=== PATIENT | female | born 1960 | race Caucasian/White ===

== ENCOUNTER 2018-04-26 12:15 | Outpatient (CLI) | payer OTHER | END 2018-04-26 12:16 | disposition home or self-care (01) | LOC: BICMAMMO 12:15 | PROVIDERS: ATTEND Family Medicine | DX: Z12.31 Encounter for screening mammogram for malignant neoplasm of breast (principal) | CPT/HCPCS: 77063; 77067 ==

== ENCOUNTER 2018-09-12 15:34 | Outpatient (CLI) | payer OTHER ==
--- NOTE | 2018-09-12 16:27 | RAD ---
LUMBAR SPINE TWO VIEWS: 09/12/18 HISTORY: Sacroiliitis, arthritis, pain for years. COMPARISON: 10/08/15. FINDINGS: AP and lateral views of the lumbar spine demonstrate disc osteophytosis and disc space narrowing invo lving the lower lumbar spine as well as extensive facet arthrosis. No evidence for acute fracture or dislocation or focal bone lesion. IMPRESSION: Lumbar spondylosis. Little change from prior study on this AP and lateral view only exam. POS: [facility]
== END 2018-09-12 15:35 | disposition home or self-care (01) ==
LOC: BICRAD 15:34
PROVIDERS: ATTEND Specialist
DX: M46.1 Sacroiliitis, not elsewhere classified (principal); M47.816 Spondylosis without myelopathy or radiculopathy, lumbar region
CPT/HCPCS: 72100

== ENCOUNTER 2019-11-07 10:01 | Emergency (ER) | payer OTHER | END 2019-11-07 11:17 | disposition home or self-care (01) | LOC: ERS 10:01 | DX: J06.9 Acute upper respiratory infection, unspecified (principal); F17.210 Nicotine dependence, cigarettes, uncomplicated; Z79.899 Other long term (current) drug therapy | CPT/HCPCS: 87804; 99284; U0001 ==

== ENCOUNTER 2019-11-25 10:23 | Outpatient (CLI) | payer OTHER ==
--- NOTE | 2019-11-25 11:17 | RAD ---
EXAM: Chest PA and lateral: HISTORY: Cough. Symptoms x6 weeks. COMPARISON: 02/27/2017 FINDINGS: Heart: Normal cardiac silhouette Aorta: Unremarkable Pulmonary vessels: Normal Costophrenic angles: Costophrenic angles are clear. Lungs: No consolidation or masses. Pneumothorax: No pneumothorax Osseous structures: No osseous abnormalities IMPRESSION: No acute cardiopulmonary process.
== END 2019-11-25 10:24 | disposition home or self-care (01) ==
LOC: BICRAD 10:23
PROVIDERS: ATTEND Specialist
DX: J44.9 Chronic obstructive pulmonary disease, unspecified (principal)
CPT/HCPCS: 71046

== ENCOUNTER 2020-02-06 09:52 | Outpatient (CLI) | payer OTHER ==
--- NOTE | 2020-02-06 10:29 | RAD ---
RADIOGRAPH LUMBAR SPINE 2 VIEWS: DATE: 02/06/2020 HISTORY: 59-year-old female with low back pain COMPARISON: 09/12/2018 COMPARISON: 02/06/2020 FINDINGS: Standing views. Transitional level at thoracolumbar junction. For the purposes of this report, the le willie with bilaterally hypoplastic ribs will be designated as T12, and the last lumbar-type vertebra will be designated as L5. There is a very mild, 6 degree right-convex curvature centered at L2-3 (measured from superior endpla te of T12 to the inferior endplate of L4). This is minimally greater than on the prior study. Vertebral body heights are maintained. Mild grade 1 anterolisthesis of L3 on L4, slightly worse than on prior study, with mild disc space na rrowing. Mild to moderate disc space narrowing at L4-5, unchanged. No significant disc space narrowing at any other level. Facet DJD at L3-4, L4-5, and L5-S1. IMPRESSION: 1) mild grade 1 spondylolisthesis at L3-4 due to facet osteoarthrosis, new or minimally worse than be fore. 2) minimal right-convex lateral curvature. 3) facet osteoarthrosis at lower levels
--- NOTE | 2020-02-06 12:13 | RAD ---
CERVICAL SPINE 3 VIEWS: HISTORY: Neck pain without injury. FINDINGS: C7 and T1 are partially obscured on the lateral view. The tip of the odontoid and portions of C1 are obscured on the AP open mouth view. Disk-osteophytosis changes are noted including C4-C5 and most m arked at C5-C6. Facet arthrosis. No prevertebral soft tissue swelling. IMPRESSION: Cervical spondylosis. POS: [facility]
== END 2020-02-06 09:53 | disposition home or self-care (01) ==
LOC: BICRAD 09:52
PROVIDERS: ATTEND Specialist
DX: M46.02 Spinal enthesopathy, cervical region (principal); M54.5 Low back pain; M47.812 Spondylosis without myelopathy or radiculopathy, cervical region; M47.816 Spondylosis without myelopathy or radiculopathy, lumbar region; M43.16 Spondylolisthesis, lumbar region; M43.8X6 Other specified deforming dorsopathies, lumbar region
CPT/HCPCS: 72040; 72100

== ENCOUNTER 2020-10-08 16:26 | Outpatient (CLI) | payer OTHER ==
--- NOTE | 2020-10-08 16:46 | RAD ---
Exam: Single view of the pelvis HISTORY: Left-sided hip pain COMPARISON: None FINDINGS: A single view the pelvis shows no evidence of acute fracture or dislocation. No degenerativ e changes seen in either hip. IMPRESSION: No evidence of acute osseous abnormality.
--- NOTE | 2020-10-08 16:46 | RAD ---
Chest 2 views HISTORY: COPD. Dyspnea. COMPARISON: 11/25/2019. FINDINGS: Cardiac silhouette and pulmonary vasculature are unremarkable. Mediastinum is midline. Post operative changes at the cervicothoracic junction of the spine. No confluent airspace consolidation, pneumothorax, or pleural fluid. IMPRESSION : No acute abnormalities are demonstrated.
--- NOTE | 2020-10-08 16:47 | RAD ---
EXAM: 3 views of the sacroiliac joints HISTORY: Left hip pain for a year COMPARISON: None FINDINGS: 3 views of the sacrum shows a symmetric appearance of the sacroiliac joints. No fusion of t he joints is seen. No surrounding erosions are present. No significant sclerosis is seen. IMPRESSION: No significant abnormality
== END 2020-10-08 16:27 | disposition home or self-care (01) ==
LOC: BICRAD 16:26
PROVIDERS: ATTEND Specialist
DX: J44.9 Chronic obstructive pulmonary disease, unspecified (principal); M46.1 Sacroiliitis, not elsewhere classified; M25.9 Joint disorder, unspecified
CPT/HCPCS: 71046; 72170; 72202

== ENCOUNTER 2022-11-11 01:34 | Inpatient (IN) | payer OTHER, SELFPAY ==
[2022-11-11 02:22] LABS: #Basophils 0.1 thou/uL (0.0-0.2); #Eosinphils 0.1 thou/uL (0.0-0.7); #Lymphocytes 1.9 thou/uL (1.20-3.40); #Monocytes 0.4 thou/uL (0.11-0.59); #Neutrophils 9.1 thou/uL (1.40-6.50); %Basophils 0.6 % (0.0-1.0); %Eosinophils 0.6 % (0.0-10.0); %Lymphocytes 16.4 % (21.0-51.0); %Neutrophils 79.4 % (42.0-75.0); Mean Corpuscular HGB CONC 35.2 g/dL (32.0-36.0); Mean Corpuscular Hemoglobin 36.6 pg (27.0-31.0); Mean Platelet Volume 7.9 fL (7.4-10.4); Platelet Count 322 10x3/uL (130-400); RBC Distribution Width 12.1 % (11.5-14.5); Red Blood Cell (RBC) Count 4.37 mill/uL (4.20-5.40); White Blood Cell (WBC) Count 11.5 10x3/uL (4.8-10.8)
[2022-11-11 02:32] LABS: ALT (SGPT) 22 U/L (8-55); AST (SGOT) 17 U/L (5-34); Albumin 4.6 g/dL (3.4-4.8); Alkaline Phosphatase 53 U/L (40-110); Anion Gap 15 mmol/L (10-20); BUN (Urea Nitrogen) 13 mg/dL (9.8-20.1); Bilirubin, Total 0.4 mg/dL (0.2-1.2); Calc. Creatinine Clearance 0 mL/min (70-130); Calcium 10.6 mg/dL (7.8-10.44); Carbon Dioxide 24 mmol/L (23-31); Chloride 103 mmol/L (98-107); Estimated GFR 76; Globulin 2.5 g/dL (2.4-3.5); Glucose 121 mg/dL (80-115); Potassium 4.2 mmol/L (3.5-5.1); Protein, Total 7.1 g/dL (5.8-8.1); Sodium 138 mmol/L (136-145)
[2022-11-11] MEDS ORDERED: Ondansetron ODT 4 MG TAB ONE (02:59)
[2022-11-11] MEDS ORDERED: Famotidine/PF 20 mg/2ml Vial ONE (03:22)
[2022-11-11] MEDS ORDERED: Morphine 4 MG/ML VIAL ONE ×2 (03:22→05:08)
[2022-11-11] MEDS ORDERED: Piperacillin/Tazobactam 4.5 GM VIAL ONE (05:08)
[2022-11-11 05:22] LABS: Bilirubin Negative (Negative); Blood, Urine Negative (Negative); Clarity Clear (Clear); Glucose, Urine (Dipstick) Normal (Negative); Ketone, Urine 20 mg/dL (Negative); Leukocyte Negative Leu/uL (Negative); Nitrite Negative (Negative); Protein, Urine (Dipstick) Negative (Neg-Trace); Specific Gravity, Urine 1.028 (1.002-1.036); Urobilinogen Normal mg/dL (Less than 2)
[2022-11-11] MEDS ORDERED: Ondansetron PF 4 MG/2 ML Vial ONE ×2 (05:46→16:50)
[2022-11-11] MEDS ORDERED: Morphine 4 MG/ML VIAL SLOW IVP PRN (05:47)
[2022-11-11] MEDS ORDERED: Ondansetron PF 4 MG/2 ML Vial IVP PRN (06:00)
[2022-11-11] MEDS ORDERED: Ondansetron ODT 4 MG TAB SL PRN (06:00)
[2022-11-11] MEDS ORDERED: Lorazepam 2 MG/ML VIAL SLOW IVP PRN (07:23)
[2022-11-11] MEDS ORDERED: Lorazepam 1 MG TAB PO PRN (07:25)
[2022-11-11] MEDS ORDERED: Ondansetron ODT 4 MG TAB PO PRN (07:25)
[2022-11-11] MEDS ORDERED: Lorazepam 2 MG/ML VIAL IM PRN (07:25)
[2022-11-11] MEDS ORDERED: Electrolyte Replacement Protocol 1 EACH FS SCH (07:30)
[2022-11-11] MEDS: Lactated Ringer's 1,000 ML IV SCH ×2 (07:54→16:22)
[2022-11-11] MEDS: Thiamine HCl 200 MG/2 ML VIAL SLOW IVP SCH (08:16)
[2022-11-11] MEDS: Famotidine/PF 20 mg/2ml Vial SLOW IVP SCH ×2 (08:16→20:25)
[2022-11-11] MEDS: Multivit, Therapeutic 1 TAB PO SCH (08:16)
[2022-11-11] MEDS: Folic Acid 1 MG TAB PO SCH (08:16)
[2022-11-11] MEDS: Lorazepam 1 MG TAB PO SCH ×3 (08:16→20:25)
[2022-11-11] MEDS: Sodium Chloride 0.9% 1,000 ML IV SCH ×2 (08:19→16:21)
[2022-11-11] MEDS: Nicotine 21 MG PATCH TD SCH (08:19)
[2022-11-11 08:35] LABS: Phosphorus 4.1 mg/dL (2.3-4.7)
[2022-11-11 09:47] VITALS: BMI 24.0
[2022-11-11] MEDS ORDERED: Piperacillin/Tazobactam 3.375 GM in Sodium Chloride 0.9% 100 ML IVPB SCH (10:00)
[2022-11-11] MEDS ORDERED: Magnesium 2 GM/50 ML(in water) 2 GM in Premix Bag 1 BAG IVPB SCH (12:30)
[2022-11-11] MEDS ORDERED: Iopamidol-370 76% 500 ML MDV (1 ML CHARGE) ONE (14:07)
[2022-11-11] MEDS ORDERED: EPINEPHrine 1 MG/ML AMP ONE (15:50)
[2022-11-11] MEDS ORDERED: Bupivacaine PF 0.5% 30 ML VIAL ONE (15:50)
[2022-11-11] MEDS ORDERED: Iopamidol 0 ML ONE (15:50)
[2022-11-11] MEDS ORDERED: Lidocaine 1% (PF) 30 ML VIAL ONE (15:50)
[2022-11-11] MEDS ORDERED: Bupivacaine HCl 0.5%/Epinephrine 1:200,000/PF 30 ml Vial ONE (15:57)
[2022-11-11] MEDS ORDERED: Sevoflurane 250 ML INH ANEST BOTTLE ONE (16:21)
[2022-11-11] MEDS ORDERED: fentaNYL PF 100 MCG/2 ML SYRINGE ONE (16:21)
[2022-11-11] MEDS ORDERED: Sodium Chloride 0.9% 100 ML ONE (16:30)
[2022-11-11] MEDS ORDERED: Piperacillin/Tazobactam 3.375 GM VIAL ONE (16:30)
[2022-11-11] MEDS ORDERED: PROPOFOL 200 MG/20 ML VIAL ONE (16:50)
[2022-11-11] MEDS ORDERED: Lidocaine 1% PF 5 ML VIAL ONE (16:50)
[2022-11-11] MEDS ORDERED: Dexamethasone 20 MG/5 ML VIAL ONE (16:50)
[2022-11-11] MEDS ORDERED: Rocuronium Bromide 10 MG/ML (10ML VIAL) ONE (16:50)
[2022-11-11] MEDS ORDERED: Succinylcholine Chloride 100 MG/5 ML SYRINGE FS ONE (16:50)
[2022-11-11] MEDS ORDERED: Ketorolac Tromethamine 30 MG/ML VIAL IVP PRN (18:24)
[2022-11-11] MEDS ORDERED: Promethazine HCl 25 MG/ML VIAL IM PRN (18:24)
[2022-11-11] MEDS ORDERED: Ondansetron HCl/PF 4 MG/2 ML Vial IVP PRN (18:24)
[2022-11-11] MEDS ORDERED: FENTANYL 50 MCG/ML 1 ML VIAL ONE (18:31)
[2022-11-11] MEDS ORDERED: Ketorolac Tromethamine 30 MG/ML VIAL ONE (18:38)
[2022-11-11] MEDS ORDERED: HYDROcodone/Acetaminophen 7.5/325 mg Tablet PO PRN (20:00)
[2022-11-12] MEDS: Sodium Chloride 0.9% 1,000 ML IV SCH ×2 (01:15→05:44)
[2022-11-12] MEDS: Lorazepam 1 MG TAB PO SCH ×2 (02:09→05:44)
[2022-11-12] MEDS: Nicotine 21 MG PATCH TD SCH (05:45)
[2022-11-12] MEDS: Thiamine HCl 200 MG/2 ML VIAL SLOW IVP SCH (05:46)
[2022-11-12] MEDS ORDERED: Levothyroxine 100 MCG SDV IVP SCH (06:00)
[2022-11-12] MEDS ORDERED: Lorazepam 1 MG TAB PO PRN (07:25)
[2022-11-12 07:48] LABS: Magnesium 2.4 mg/dL (1.6-2.6)
[2022-11-12] MEDS: Multivit, Therapeutic 1 TAB PO SCH (07:48)
[2022-11-12] MEDS: Folic Acid 1 MG TAB PO SCH (07:48)
[2022-11-12] MEDS: Famotidine/PF 20 mg/2ml Vial SLOW IVP SCH (07:48)
[2022-11-12 09:00] VITALS: BP 123/75; TEMP 98.1
[2022-11-13] MEDS ORDERED: Lorazepam 1 MG TAB PO PRN (07:25)
[2022-11-13] MEDS ORDERED: Lorazepam 0.5 MG TAB PO SCH (07:30)
[2022-11-14] MEDS ORDERED: Lorazepam 0.5 MG TAB PO PRN (07:25)
[2022-11-14] MEDS ORDERED: Thiamine 100 MG TAB PO SCH (09:00)
== END 2022-11-12 10:00 | disposition home or self-care (01) | DRG 419 ==
LOC: ERS 01:34 → SURG A 05:45
PROVIDERS: ADMIT Specialist; ATTEND Specialist
PROC: 0FT44ZZ Resection of Gallbladder, Percutaneous Endoscopic Approach (ICD-10-PCS; principal; 2022-11-11)
DX: K81.0 Acute cholecystitis (principal); F17.210 Nicotine dependence, cigarettes, uncomplicated; E03.9 Hypothyroidism, unspecified; E06.3 Autoimmune thyroiditis; G89.29 Other chronic pain; F10.20 Alcohol dependence, uncomplicated; J44.9 Chronic obstructive pulmonary disease, unspecified; Z98.890 Other specified postprocedural states; Z90.710 Acquired absence of both cervix and uterus
CPT/HCPCS: 36415; 74177; 76705; 80053; 81003; 83690; 83735; 84100; 84443; 84484; 85025; 88304; 93005; 96374; 96375; 96376; C1889; J0171; J1100; J1885; J2001; J2270; J2405; J2543; J2704; J3010; J3411; J3475; J3490; J7050; Q0162; Q9967; S0020; S0028

== ENCOUNTER 2024-07-29 11:59 | Outpatient (CLI) | payer OTHER | END 2024-07-29 12:00 | disposition home or self-care (01) | LOC: BICRAD 11:59 | PROVIDERS: ATTEND Family Medicine | DX: M25.521 Pain in right elbow (principal) ==

== ENCOUNTER 2024-09-11 15:31 | Outpatient (CLI) | payer OTHER | END 2024-09-11 15:32 | disposition home or self-care (01) | LOC: BICMAMMO 15:31 | PROVIDERS: ATTEND Family Medicine | DX: Z12.31 Encounter for screening mammogram for malignant neoplasm of breast (principal) | CPT/HCPCS: 77063; 77067 ==

== ENCOUNTER 2025-03-20 11:45 | Outpatient (CLI) | payer OTHER | END 2025-03-20 11:46 | disposition home or self-care (01) | LOC: BICRAD 11:45 | PROVIDERS: ATTEND Family Medicine | DX: M79.672 Pain in left foot (principal) ==

== ENCOUNTER 2025-04-02 14:52 | Outpatient (CLI) | payer OTHER ==
[~2025-04-02 14:52] MED LIST: GASTROGRAFIN 30 ML BOT ONE; Iopamidol 370 76% 100 ML VIAL ONE
[2025-04-02 16:06] LABS: Estimated GFR - POC 72.0
== END 2025-04-02 14:53 | disposition home or self-care (01) ==
LOC: CT 14:52
PROVIDERS: ATTEND Nurse Practitioner Family
DX: R10.9 Unspecified abdominal pain (principal); R11.2 Nausea with vomiting, unspecified; R19.7 Diarrhea, unspecified
CPT/HCPCS: 36415; 74177; 82565; Q9963; Q9967